=== PATIENT | male | born 1950 | race Caucasian/White ===

== ENCOUNTER → 2016-08-26 | Outpatient (CLI) | payer OTHER, MEDICAID | LOC: CIMAGING 13:49 | PROVIDERS: ATTEND Orthopaedic Surgery | DX: M19.012 Primary osteoarthritis, left shoulder (principal) | CPT/HCPCS: 73200-PO ==

== ENCOUNTER → 2017-12-04 | Outpatient (CLI) | payer OTHER | LOC: CIMAGING 11:06 | PROVIDERS: ATTEND Family Medicine | DX: M50.31 Other cervical disc degeneration, high cervical region (principal); M50.321 Other cervical disc degeneration at C4-C5 level; M50.322 Other cervical disc degeneration at C5-C6 level; M50.323 Other cervical disc degeneration at C6-C7 level; S22.019A Unspecified fracture of first thoracic vertebra, initial encounter for closed fracture; M25.861 Other specified joint disorders, right knee; M19.012 Primary osteoarthritis, left shoulder; M54.6 Pain in thoracic spine | CPT/HCPCS: 72050-PO; 72080-PO; 73030-PO; 73562-PO ==

== ENCOUNTER 2018-01-04 05:44 | Inpatient (IN) | payer OTHER, MEDICAID ==
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
[2018-01-04] MEDS ORDERED: ceFAZolin 2 GM/DEXTROSE 100 ML IV ONE (06:07)
[2018-01-04] MEDS ORDERED: LIDOCAINE 1% 2 ML INJ ID PRN (06:11)
[2018-01-04] MEDS ORDERED: LR 1,000 ML IV ONE (06:11)
--- NOTE | 2018-01-04 06:33 | PDHPUP ---
History & Physical Update H&P update statement: This history and physical update is based on an assessment of the patient which was completed after admission or registration (within 24 hours), but prior to the surgery/procedure. H&P update: no change in patient's condition since H&P completed
[2018-01-04] MEDS ORDERED: ROPIVACAINE HCL 20 MG/10 ML INJ EP ONE (06:35)
[2018-01-04] MEDS ORDERED: EPINEPHrine 1 MG/ML INJ ONE ×2 (06:35→09:51)
[2018-01-04] MEDS ORDERED: MIDAZOLAM 2 MG/2 ML VIAL IVP ONE (07:11)
--- NOTE | 2018-01-04 07:11 | PDANEPAE ---
ANE History of Present Illness total shoulder ANE Past Medical History - Cardiovascular History Hx Hypertension: No Hx Arrhythmias: No Hx Chest Pain: No Hx Coronary Artery / Peripheral Vascular Disease: No Hx CHF / Valvular Disease: No Hx Palpitations: No Cardiovascular History Comment: "borderline high BP"- not treated yet - Pulmonary History Hx COPD: No Hx Asthma/Reactive Airway Disease: Yes Hx Recent Upper Respiratory Infection: No Hx Oxygen in Use at Home: No Hx Sleep Apnea: No Sleep Apnea Screening Result - Last Documented: Positive - Neurologic History Hx Cerebrovascular Accident: No Hx Seizures: No Hx Dementia: No - Endocrine History Hx Diabetes: No - Renal History Hx Renal Disorders: No - Liver History Hx Hepatic Disorders: No - Neurological & Psychiatric Hx Hx Neurological and Psychiatric Disorders: No - Cancer History Hx Cancer: No - Congenital Disorder History Hx Congenital Disorders: No - GI History Hx Gastrointestinal Disorders: Yes Gastrointestinal History Comment: stent in duodenum, perforated ulcer? - Surgical History Prior Surgeries: L knee reconstruction ANE Review of Systems Review of Systems: - Exercise capacity METS (RN): 4 METS ANE Patient History - Allergies Allergies/Adverse Reactions: No Known Allergies Allergy (Unverified 03/26/10 11:12) - Home Medications Home medications: home medication list seen and reviewed Home Medications: Albuterol INH Nucare 04/09/10 [Last Taken 01/04/18 06:00] Benadryl Allergy 01/04/18 [Last Taken 1 Week Ago ~12/28/17] Vicodin Es 7.5-300 mg Tablet 01/04/18 [Last Taken 01/04/18 05:00] - NPO status NPO Status: no food or drink >8 hours NPO Since - Liquids (Date): 01/04/18 NPO Since - Liquids (Time): 05:00 NPO Since - Solids (Date): 01/03/18 NPO Since - Solids (Time): 21:30 - Smoking Hx Smoking Status: Never smoked - Family Anes Hx Family Hx Anesthesia Complications: none known ANE Labs/Vital Signs - Vital Signs Blood Pressure: 164/93 Heart Rate: 63 Respiratory Rate: 16 O2 Sat (%): 93 Height: 175.26 cm Weight: 92.533 kg ANE Physical Exam - Airway Mallampati Score: Class 2 Mouth exam: normal dental/mouth exam - Pulmonary Pulmonary: no respiratory distress - Cardiovascular Cardiovascular: regular rate and rhythym - ASA Status ASA Status: II ANE Anesthesia Plan Anesthesia Plan: GA w LMA Regional Anesthesia: continuous NB, interscalene BP NB
[2018-01-04] MEDS ORDERED: MIDAZOLAM 2 MG/2 ML VIAL ONE ×2 (07:18→07:21)
[2018-01-04] MEDS ORDERED: DEXAMETHASONE 4 MG/ML VIAL ONE (07:21)
[2018-01-04] MEDS ORDERED: fentaNYL 100 MCG/2 ML INJ ONE ×2 (07:21→11:04)
[2018-01-04] MEDS ORDERED: LIDOCAINE 2% 2 ML INJ ONE ×5 (07:21→07:55)
[2018-01-04] MEDS ORDERED: PROPOFOL 200 MG/20 ML VIAL ONE (07:21)
[2018-01-04] MEDS ORDERED: ROPIVACAINE HCL 150 MG/30 ML INJ ONE (08:06)
[2018-01-04] MEDS ORDERED: ROPIVACAINE 0.2% 1,100 MG in PUMP SET 1 EA NB SCH (08:45)
[2018-01-04] MEDS ORDERED: ROCURONIUM 50 MG/5 ML VIAL ONE (08:50)
[2018-01-04] MEDS ORDERED: KETOROLAC 30 MG/1 ML SDV ONE (10:23)
[2018-01-04] MEDS ORDERED: ONDANSETRON 4 MG/2 ML VIAL ONE ×3 (10:23→11:18)
[2018-01-04] MEDS ORDERED: HYDROCODONE/APAP 5/325 TAB PO PRN (10:26)
[2018-01-04] MEDS ORDERED: NALOXONE HCL 0.4 MG/ML INJ IVP PRN (10:26)
[2018-01-04] MEDS ORDERED: ALBUTEROL 3 ML DEYVIAL IH PRN (10:26)
[2018-01-04] MEDS ORDERED: LR 500 ML IV PRN (10:26)
[2018-01-04] MEDS ORDERED: oxyCODONE IR 5 MG TAB PO PRN (10:26)
[2018-01-04] MEDS ORDERED: SUGAMMADEX SODIUM 200 MG/2 ML VIAL IVP ONE (10:54)
--- NOTE | 2018-01-04 11:00 | POSTANESTH ---
Post Anesthetic Evaluation Cardiovascular Status: Normal, Stable Respiratory Status: Normal, Stable Level of Consciousness/Mental Status: Can Participate in Eval Pain Control: Adequate, Prn Tx Ordered Nausea/Vomiting Control: Adequate, Prn Tx Ordered Complications Possibly Related to Anesthesia: None Noted
[2018-01-04] MEDS ORDERED: HYDROmorphONE/DILAUDID 1 MG/ML INJ ONE (11:04)
[2018-01-04] MEDS: ONDANSETRON 4 MG/2 ML VIAL IVP PRN ×2 (11:11→11:26)
[2018-01-04] MEDS: fentaNYL 100 MCG/2 ML INJ IVP PRN ×2 (11:12→11:29)
[2018-01-04] MEDS: HYDROmorphONE/DILAUDID 1 MG/ML INJ IVP PRN ×2 (11:16→11:29)
[2018-01-04] MEDS ORDERED: ACETAMINOPHEN 500 MG TAB PO PRN (11:40)
[2018-01-04] MEDS ORDERED: ONDANSETRON 4 MG/2 ML VIAL IVP PRN (11:40)
--- NOTE | 2018-01-04 11:50 | GOP ---
[f rep st] OPERATIVE REPORT DATE OF OPERATION: 01/04/2018 SURGEON: Thanh Villanueva MD PHYSICIAN NEONATOLOGY: Jesusita Cowart, PAC, medically required for positioning of the arm during open total shou lder and careful retraction of vital neurovascular structures including the axillary nerve. PREOPERATIVE DIAGNOSIS: 1. Left shoulder pain. 2. Left shoulder degenerative end-stage osteoarthritis. 3. Biceps pathology. 4. Loose body. POSTOPERATIVE DIAGNOSIS: 1. Left shoulder pain. 2. Left shoulder degenerative end-stage osteoarthritis. 3. Biceps pathology. 4. Loose body. PROCEDURE PERFORMED: 1. Left total shoulder replacement. 2. Open biceps tenodesis. 3. Open loose body removal, 6 x 10 mm. FINDINGS: ESTIMATED BLOOD LOSS: Minimal. INDICATIONS: A 67-year-old male with left shoulder pain. Clinical radiographic CT scan and MRI conf irmed end-stage osteoarthritis. He had a recent interval accident and concern for rotator cuff tear, but it looked excellent on the MRI. The patient presents for a left total shoulder replacement. Hi s nasal swab was consistent with methicillin-sensitive Staph, and we did a 5-day Hibiclens and nasal regimen with Bactroban. DESCRIPTION OF PROCEDURE: The patient was identified in the preoperative holding area. Consent, lat erality and preoperative antibiotics were confirmed and delivered. All questions were answered. Lef t shoulder was identified. Skin looked healthy. He had stiff range of motion and painful crepitus a t 40 degrees of abduction, 40 degrees of forward flexion. The patient was brought into the operating room. Interscalene nerve catheter. Interscalene block. 30 degree head of bed. Beach chair position. We kept the back of the table on. We planned to use a padded [place]. Presho justin was used. Left upper extremity was prepped and draped in the usual s terile fashion. Surgical time-out was performed. Ioban draping. Standard deltopectoral interval. The cephalic vein was taken with the deltoid. He had minimal subcu taneous fat. The biceps was enlarged and swollen. We retrieved the biceps. Tied this down to the p ec tendon after a pec release of about 2 cm. We went ahead and through the rotator interval. Did a biceps tenotomy up through the rotator interval. Found the subscapularis. Did a lesser tuberosity o steotomy with a curved osteotome. Freed up the subscap with finger dissection. Palpated the axillar y nerve. With progressive external rotation, we did an inferior capsular release with protection of the axillary nerve, so we were able to unveil the osteotomy site. There was a large loose body in th e axillary recess that was removed, 6 x 10 mm, as well as big osteophytes inferiorly that were remove d with a curved osteotome. We found the anatomic head. Did a freehand cut with the humeral head ost eotomy. We went ahead and prepped the humerus. Just a centimeter posterior to the biceps groove, we found the central canal. We reamed and broached up to 11. We placed a humeral head cut guide prote ctor and then took the arm out of the Presho and placed it on a padded [place]. We used a Bankart re tractor and [place]. Inferior and posterior capsule release while protecting the axillary nerve. The glenoid had a nice exposure. The muscle bulk was a little bit difficult. We were able to use a can nulated guide, and prepped the glenoid and chose a large glenoid. We used bone graft in the middle s lot and then cement on the external slots and the smiley face. We put the arm back in [place]. Di slocated the head again. Took away the humeral head protector. Drilled 2 holes with a Hendricks sutur e passer and passed the 2 sutures from the lateral fin of the humerus component. We had a nice fit a nd fill with the anatomic neck. We chose and sized for a 54 eccentric with most of the offset at the 7 o'clock position. We malleted this down into the Lainez taper. We relocated the head. The arm wa s placed in neutral, and we tied down the lesser tuberosity with the Arthrex technique. We put 3 fig [id number] stitches, 1 in the rotator interval and 2 to secure the lesser tuberosity osteotomy to t he remainder of the biceps tissue for reinforcement. The arm was taken through range of motion 45-45 , internal and external rotation with about 40% posterior Shuck. We washed out the wound copiously w ith 500 cc of warm normal saline. 2-0 PDS for deep subcutaneous closure, 3-0 Monocryl for superficia l subcutaneous closure, and Dermabond, Mastisol, Steri-Strips. [place]oco dressing applied. IMPLANTS USED: Arthrex #11 stem, 54 x 21 head, and a large glenoid. Subscap treatment was a lesser tuberosity osteotomy with the Arthrex subscap repair technique through the stem and drill holes. COMPLICATIONS: None. TOTAL SURGICAL TIME: 2.5 hours. /[id number]/MODL
[2018-01-04] MEDS: ceFAZolin 2 GM/DEXTROSE 100 ML IV SCH ×2 (13:48→21:35)
--- NOTE | 2018-01-04 15:28 | PDMN ---
Medical Necessity Medical necessity: [facility] [place]: S634 shoulder arthroplasty INPT only CPT 92124- L TSA, L bicep tenodesis, open loose body removal 6X10mm
--- NOTE | 2018-01-04 18:31 | SOAPPROG ---
SOAP Progress Note Assessment/Plan: Assessment: postop total shoulder xrays in PACU look great exam WNL Plan: 01/04/18 18:30 overnoc pain control PT/OT tomorrow pain catheter Subjective: well. sitting in bed. sling on. ordering dinner Objective: Vital Signs Temp Pulse Resp BP Pulse Ox 37.1 C 73 15 124/71 H 95 01/04/18 17:39 01/04/18 17:39 01/04/18 17:39 01/04/18 17:39 01/04/18 17:39 01/03/18 01/04/18 01/05/18 05:59 05:59 05:59 Intake Total 1500 Output Total 1300 Balance 200 active fingers and hand. decreased sensation thumb and forefinger. dressing cdi. sensate over lateral and posterior deltoid abd soft no calf pain or swelling - Pending Discharge Pending Discharge Within 24 Hours: Yes Pending Discharge Within 48 Hours: Yes Pending Discharge Date: 01/05/18 Pending Discharge Time: 11:00 ICD10 Worksheet Patient Problems: Problems Problem Status Onset Shoulder arthritis Acute - ICD10 Problem Qualifiers (1) Shoulder arthritis
[2018-01-04] MEDS: oxyCODONE IR 5 MG TAB PO PRN ×2 (21:34→22:17)
[2018-01-05] MEDS: oxyCODONE IR 5 MG TAB PO PRN ×4 (02:31→14:53)
[2018-01-05] MEDS: ceFAZolin 2 GM/DEXTROSE 100 ML IV SCH ×2 (06:05→13:28)
[2018-01-05] MEDS ORDERED: ENOXAPARIN 40 MG/0.4 ML SYR SC SCH (09:00)
--- NOTE | 2018-01-05 12:15 | PDDCSUM ---
Discharge Summary Discharge Summary: S: o: a/p: 67 yo male, pod #1 s/p left total shoulder arthroplasty by dr. renee -db home today
--- NOTE | 2018-01-05 14:03 | ASMTLACE ---
LACE Length of stay for Answers: 2 days current admission Acuity / Level of Answers: Yes Care: Did the patient have an inpatient admission? Comorbidities - select Answers: Opioid dependence all that apply / Chronic pain Other Notes: Asthma; Duodenal ulcer # of Emergency department Answers: 0 visits in the last 6 months Score: 10 Date Signed: 01/05/2018 01:53 PM Electronically Signed By:NAVEED Lockhart
--- NOTE | 2018-01-05 14:04 | ASMTCMCOM ---
CM Note CM Note Notes: Pt emilee planned OA of L shoulder. OT/PT clear pt for home. Pt resides alone, will have friend stay with him. No CM d/c needs identified. Date Signed: 01/05/2018 01:55 PM Electronically Signed By:NAVEED Lockhart
--- NOTE | 2018-01-05 14:58 | PDPAINCON ---
Pain Management Consultation Patient referred by : JOVANA - Subjective Pain is: high, but manageable Activity: able to ambulate - Objective Site: brachial plexus Continuous infusion: ropivicaine Catheter site: clean, dry, intact - Assessment/Plan Assessment/Plan: change infusion rate (Infusion rate increased to 14 ml/hr for 1 hour, then back to 8 ml/hr. Discussed with patient and his nurse.) Additional comments: Patient also instructed to take PO meds as needed.
[2018-01-05 15:00] VITALS: BP 131/96
== END 2018-01-05 15:25 | disposition home or self-care (01) | DRG 483 ==
LOC: FSGY 05:44 → F3N 10:56 → OBSVTOIN 15:28
PROVIDERS: ADMIT Orthopaedic Surgery; ATTEND Orthopaedic Surgery
PROC: 0RRK0JZ Replacement of Left Shoulder Joint with Synthetic Substitute, Open Approach (ICD-10-PCS; principal; 2018-01-04 07:15)
PROC: 0LQ40ZZ Repair Left Upper Arm Tendon, Open Approach (ICD-10-PCS; principal; 2018-01-04 07:15)
PROC: 0RBK0ZZ Excision of Left Shoulder Joint, Open Approach (ICD-10-PCS; principal; 2018-01-04 07:15)
DX: M19.012 Primary osteoarthritis, left shoulder (principal); M24.012 Loose body in left shoulder; G89.29 Other chronic pain; J45.909 Unspecified asthma, uncomplicated; Z87.891 Personal history of nicotine dependence; Z86.14 Personal history of Methicillin resistant Staphylococcus aureus infection
CPT/HCPCS: 97161-GP; 97165-GO; C1713; G8987-GO-CI; G8988-GO-CI; G8989-GO-CI; J0171; J0690; J1100; J1170; J1650; J1885; J2250; J2405; J2704; J2795; J3010

== ENCOUNTER → 2018-08-18 | Outpatient (CLI) | payer OTHER | LOC: CIMAGING 12:55 | PROVIDERS: ATTEND Family Medicine | DX: M51.36 Other intervertebral disc degeneration, lumbar region (principal); M17.11 Unilateral primary osteoarthritis, right knee; M11.261 Other chondrocalcinosis, right knee; I70.90 Unspecified atherosclerosis; M25.361 Other instability, right knee; M54.9 Dorsalgia, unspecified; M25.561 Pain in right knee | CPT/HCPCS: 72100-PO; 73562-PO ==

== ENCOUNTER → 2018-11-08 | Outpatient (CLI) | payer OTHER | LOC: CIMAGING 09:14 ==